=== PATIENT | female | born 1985 | race Caucasian/White ===

== ENCOUNTER 2022-11-27 00:16 | Emergency (ER) | payer OTHER, MEDICAID ==
[2022-11-27 01:05] LABS: BASOPHILS ABSOLUTE AUTO 0.06 K/uL (0.00-0.10); BASOPHILS PERCENT AUTO 0.5 % (0.1-1.3); EOSINOPHILS PERCENT AUTO 3.4 % (0.0-5.4); HEMATOCRIT 40.8 % (34.3-46.0); IMMATURE GRAN ABSOLUTE AUTO 0.05 K/uL (0.00-0.23); IMMATURE GRAN PERCENT AUTO 0.4 % (0.0-0.7); LYMPHOCYTES PERCENT AUTO 32.6 % (11.4-47.7); MEAN CORPUSCULAR HEMOGLOBIN 30.2 pg (31.6-35.5); MEAN CORPUSCULAR HGB CONC 34.3 g/dL (31.6-35.5); MEAN CORPUSCULAR VOLUME 87.9 fL (81.4-99.0); MONOCYTES ABSOLUTE AUTO 0.73 K/uL (0.20-0.90); MONOCYTES PERCENT AUTO 6.3 % (3.3-12.6); NEUTROPHILS ABSOLUTE AUTO 6.61 K/uL (1.0-7.6); NEUTROPHILS PERCENT AUTO 56.8 % (40.0-78.1); PLATELET COUNT,PLT 288 K/uL (130-375); RED BLOOD CELL COUNT 4.64 M/uL (3.77-5.24); WHITE BLOOD CELL COUNT,WBC 11.7 K/uL (3.2-11.0)
[2022-11-27 01:21] LABS: ANION GAP 9.9 mmol/L (5.0-14.0); CALCIUM 8.2 mg/dL (8.5-10.1); CREATININE 0.8 mg/dL (0.6-1.0); EST CRCL DRUG DOSING (CG) 92.72 mL/min; POTASSIUM,K 3.8 mmol/L (3.6-5.2)
[2022-11-27] MEDS ORDERED: Sodium Chloride 0.9% 10 ML Syringe FLUSH PRN (02:05)
[2022-11-27] MEDS ORDERED: Sodium Chloride 0.9% 100 ML IV SCH (02:15)
[2022-11-27] MEDS ORDERED: Iopamidol 755 Mg/ML 100 ML Bottle IV SCH (02:15)
== END 2022-11-27 04:07 | disposition home or self-care (01) ==
LOC: JP.ED 00:16
DX: S70.12XA Contusion of left thigh, initial encounter (principal); F17.210 Nicotine dependence, cigarettes, uncomplicated; Z88.0 Allergy status to penicillin; V89.2XXA Person injured in unspecified motor-vehicle accident, traffic, initial encounter; Y92.410 Unspecified street and highway as the place of occurrence of the external cause
CPT/HCPCS: 36415; 73706; 80048; 83605; 85025; 86140; 99284; J3490; Q9967